=== PATIENT | female | born 1985 | race African-American/Black ===

== ENCOUNTER 2022-03-31 16:52 | Emergency (ER) | payer OTHER ==
[~2022-03-31 16:52] MED LIST: HYDROCODON-ACE1 EAC4 PO; KEFLEX500 MG PO
[2022-03-31] MEDS ORDERED: CYCLOBENZAPRINE10 MG PO (18:23)
== END 2022-03-31 18:32 | disposition home or self-care (01) ==
LOC: FER 16:52
DX: R51.9 Headache, unspecified (principal); Z28.310 Unvaccinated for COVID-19; V49.40XA Driver injured in collision with unspecified motor vehicles in traffic accident, initial encounter
CPT/HCPCS: 70450; 72125